=== PATIENT | female | born 1995 | race Caucasian/White ===

== ENCOUNTER 2017-08-16 14:49 | Emergency (ER) | payer BC ==
[2017-08-16] MEDS ORDERED: NS 0.9% 1000 ML* 1,000 ML IV ONE (15:30)
[2017-08-16 16:59] LABS: EGFR Non-African American 111.1 (>60)
[2017-08-16] MEDS ORDERED: Iohexol 350* (CONTRAST) 500 ML MDV IV ONE (17:25)
--- NOTE | 2017-08-16 17:45 | RAD ---
HISTORY: Shortness of breath, positive d-dimer COMPARISONS: None TECHNIQUE: Multiple contiguous axial CT scans of the chest were obtained after the administration of nonionic intravenous contrast, timed to the pulmonary arterial phase of contrast enhancement.. Coronal and sagittal multiplanar reformations are also submitted for review. FINDINGS: Evaluation somewhat limited by patient motion artifact. This limits evaluation of the segmental branches to the lower lobes bilaterally. NECK AND THYROID: The lower neck and thyroid are unremarkable. CHEST WALL: There is no lower cervical, axillary, or supraclavicular lymphadenopathy by size criteria. HEART AND PERICARDIUM: The heart is unremarkable. AORTA AND PULMONARY VASCULATURE: The aorta and pulmonary vasculature are normal. MEDIASTINUM: There is no mediastinal lymphadenopathy by size criteria. UZMA: There is no hilar lymphadenopathy by size criteria. AIRWAY AND ESOPHAGUS: The airway is unremarkable, without endobronchial filling defect. The esophagus is grossly normal. LUNG PARENCHYMA: The lungs are clear. PLEURA: There is a small left pleural effusion. UPPER ABDOMEN: The upper abdomen is unremarkable. BONES AND SOFT TISSUES: No bone or soft tissue abnormalities are noted. OTHER: None. IMPRESSION: 1. EVALUATION IS SOMEWHAT LIMITED BY PATIENT BREATHING MOTION ARTIFACT, WHICH LIMITS EVALUATION OF THE SEGMENTAL BRANCHES TO THE LOWER LOBES BILATERALLY.. WITHIN THE LIMITATIONS OF THE STUDY, THERE IS NO PULMONARY ARTERIAL FILLING DEFECT TO SUGGEST PULMONARY EMBOLISM. 2. SMALL LEFT PLEURAL EFFUSION
[2017-08-16] MEDS ORDERED: Ketorolac INJ* 30 MG/ML 1 ML VIAL IV PUSH ONE (18:04)
[2017-08-16] MEDS ORDERED: Azithromycin TAB* 250 MG PO ONE (18:07)
--- NOTE | 2017-08-16 19:14 | ED ---
Mis Dunlap Gabriel scribed for Jordi Segura on 08/16/17 at 1524 . Shortness of Breath - HPI Summary HPI Summary: This patient is a 21 year old F presenting to [facility] with a chief complaint of SOB since yesterday afternoon. Pt was seen at [facility] and sent here for a positive d-dimer to r/o PE. The patient rates the pain 5/10 in severity. Symptoms aggravated by exertion. Patient reports chest discomfort. Patient denies edema and ABD pain. Pt is on BC. - History of Current Complaint Chief Complaint: EDShortnessOfBreath Time Seen by Provider: 08/16/17 15:17 Hx Obtained From: Patient Onset/Duration: Still Present Timing: Constant Dyspnea At: Rest Aggrevating Factors: Other - exertion Associated Signs & Symptoms: Chest Pain Unrelated to Cough - Allergy/Home Medications Allergies/Adverse Reactions: Allergies Allergy/AdvReac Type Severity Reaction Status Date / Time No Known Allergies Allergy Verified 08/16/17 14:55 PMH/Surg Hx/FS Hx/Imm Hx Endocrine/Hematology History: Denies: Hx Diabetes Cardiovascular History: Denies: Hx Cardiac Arrest Respiratory History: Denies: Hx Bronchopulmonary Dysplasia Infectious Disease History: No Infectious Disease History: Denies: Traveled Outside the [place] in Last 30 Days - Family History Known Family History: Positive: Hypertension - granfather who is 90 y/o Negative: Cardiac Disease, Diabetes, Renal Disease, Respiratory Disease, Seizure Disorder, Blood Disorder - Social History Occupation: Student Lives: Dormitory/Roommates Alcohol Use: None Hx Substance Use: No Substance Use Type: Reports: None Hx Tobacco Use: No Smoking Status (MU): Never Smoked Tobacco Review of Systems Positive: Chest Pain - discomfort Positive: Shortness Of Breath Negative: Abdominal Pain Negative: Edema All Other Systems Reviewed And Are Negative: Yes Physical Exam - Summary Physical Exam Summary: Appearance: Well appearing, no pain distress Skin: warm, dry, reflects adequate perfusion Head/face: normal Eyes: EOMI, SARA ENT: normal Neck: supple, non-tender Respiratory: CTA, breath sounds present Cardiovascular: RRR, pulses symmetrical Abdomen: non-tender, soft Bowel: present Musculoskeletal: normal, strength/ROM intact Neuro: normal, sensory motor intact, A&Ox3 Triage Information Reviewed: Yes Vital Signs On Initial Exam: Initial Vitals Temp Pulse Resp BP Pulse Ox 98.9 F 68 14 129/70 96 08/16/17 14:58 08/16/17 14:58 08/16/17 14:58 08/16/17 14:58 08/16/17 14:58 Vital Signs Reviewed: Yes Diagnostics - Vital Signs Vital Signs Temp Pulse Resp BP Pulse Ox 08/16/17 14:58 98.9 F 68 14 129/70 96 - Laboratory Lab Results: Lab Results 08/16/17 08/16/17 Range/Units 15:40 15:40 Sodium 139 (133-145) mmol/L Potassium 4.0 (3.5-5.0) mmol/L Chloride 104 (101-111) mmol/L Carbon Dioxide 27 (22-32) mmol/L Anion Gap 8 (2-11) mmol/L BUN 10 (6-24) mg/dL Creatinine 0.67 (0.51-0.95) mg/dL Est GFR ( Amer) 142.9 (>60) Est GFR (Non-Af Amer) 111.1 (>60) BUN/Creatinine Ratio 14.9 (8-20) Glucose 101 H (70-100) mg/dL Calcium 9.7 (8.6-10.3) mg/dL Total Bilirubin 0.30 (0.2-1.0) mg/dL AST 17 (13-39) U/L ALT 16 (7-52) U/L Alkaline Phosphatase 33 L (34-104) U/L Troponin I 0.00 (<0.04) ng/mL Total Protein 6.5 (6.4-8.9) g/dL Albumin 4.3 (3.2-5.2) g/dL Globulin 2.2 (2-4) g/dL Albumin/Globulin Ratio 2.0 (1-3) Beta HCG, Quant < 0.60 mIU/mL Result Diagrams: 08/16/17 15:40 Lab Statement: Any lab studies that have been ordered have been reviewed, and results considered in the medical decision making process. - CT Chest/Thorax CT Interpretation Completed By: Radiologist - 1. EVALUATION IS SOMEWHAT LIMITED BY PATIENT BREATHING MOTION ARTIFACT, WHICH LIMITS EVALUATION OF THE SEGMENTAL BRANCHES TO THE LOWER LOBES BILATERALLY.. WITHIN THE LIMITATIONS OF THE STUDY, THERE IS NO PULMONARY ARTERIAL FILLING DEFECT TO SUGGEST PULMONARY EMBOLISM. 2. SMALL LEFT PLEURAL EFFUSION. ED physician has reviewed this report. - EKG 16:01 Cardiac Rate: NL - 63 BPM EKG Rhythm: Sinus Rhythm EKG Interpretation: Non-specific T changes Course/Dx - Course Course Of Treatment: 21 y/o F complains of chest pain. Labs were negative. CT abd/pel negative. Patient will be discharged with prescription and follow up from PCP in 3 days. Patient agreeable to plan. - Diagnoses Differential Diagnosis/HQI/PQRI: Positive: Bronchitis, Pneumonia, Pulmonary Embolism Provider Diagnoses: Chest pain, Pleural effusion Discharge - Sign-Out/Discharge Documenting (check all that apply): Discharge - Discharge Plan Condition: Stable Disposition: HOME Prescriptions: Azithromycin TAB* [Zithromax TAB (Z-FALLON) 250 mg #6 tabs] 250 mg PO DAILY #4 tab Ibuprofen TAB* [Motrin TAB* 600 MG] 600 mg PO Q8H PRN #20 tab MDD 3 PRN Reason: Pain Patient Education Materials: Chest Pain (ED) Referrals: No Primary Care Phys,NOPCP [Primary Care Provider] - [facility] [place] [facility] REFERRAL [Outside] - 3 Days Additional Instructions: Take medication as prescribed. Follow up with your primary care provider in 3 days. Return to the Emergency Department with any new or worsening symptoms. - Billing Disposition and Condition Condition: STABLE Disposition: HOME The documentation as recorded by the Mis galan Gabriel accurately reflects the service I personally performed and the decisions made by Imelda luevano Emmanuel.
[2017-08-16 19:30] VITALS: BP 108/78
== END 2017-08-16 19:42 | disposition home or self-care (01) ==
LOC: ED 14:49
DX: J90 Pleural effusion, not elsewhere classified (principal); R07.9 Chest pain, unspecified; R06.02 Shortness of breath
CPT/HCPCS: 36415; 71275; 80053; 84484; 84702; 93005; 96374; 99283; A9270-GY; J1885; Q9967